=== PATIENT | male | born 1970 | race Caucasian/White ===

== ENCOUNTER 2018-03-12 23:29 | Emergency (ER) | payer SELFPAY ==
[2018-03-12] MEDS ORDERED: Ibuprofen 200 MG TAB ONE (23:57)
== END 2018-03-12 23:57 | disposition home or self-care (01) ==
LOC: BURERS 23:29
DX: L02.11 Cutaneous abscess of neck (principal); E11.9 Type 2 diabetes mellitus without complications
CPT/HCPCS: 10060

== ENCOUNTER 2018-07-09 18:30 | Emergency (ER) | payer BC, SELFPAY ==
[2018-07-09] MEDS ORDERED: Meclizine HCl 25 MG TAB ONE (19:04)
== END 2018-07-09 19:24 | disposition home or self-care (01) ==
LOC: BURERS 18:30
DX: H81.13 Benign paroxysmal vertigo, bilateral (principal); E11.9 Type 2 diabetes mellitus without complications
CPT/HCPCS: 36416; 96372

== ENCOUNTER 2019-03-05 15:38 | Emergency (ER) | payer BC | END 2019-03-05 17:19 | disposition home or self-care (01) | LOC: BURERS 15:38 | DX: L02.11 Cutaneous abscess of neck (principal); E11.9 Type 2 diabetes mellitus without complications; Z79.84 Long term (current) use of oral hypoglycemic drugs | CPT/HCPCS: 10060 ==

== ENCOUNTER 2020-05-24 13:31 | Emergency (ER) | payer BC ==
[2020-05-24] MEDS ORDERED: Promethazine HCl 25 MG/ML VIAL ONE (14:18)
== END 2020-05-24 14:43 | disposition home or self-care (01) ==
LOC: BURERS 13:31
DX: H81.11 Benign paroxysmal vertigo, right ear (principal); Z79.899 Other long term (current) drug therapy; Z79.84 Long term (current) use of oral hypoglycemic drugs; E11.9 Type 2 diabetes mellitus without complications
CPT/HCPCS: 96372; 99283; J2550

== ENCOUNTER 2024-03-22 10:50 | Emergency (ER) | payer BC ==
[2024-03-22] MEDS ORDERED: Meclizine HCl 25 MG TAB ONE (11:26)
[2024-03-22] MEDS ORDERED: HYDROcodone/Acetaminophen 10/325 mg Tablet ONE (11:36)
== END 2024-03-22 13:06 | disposition home or self-care (01) ==
LOC: BURERS 10:50
DX: M54.50 Low back pain, unspecified (principal); R42 Dizziness and giddiness; I10 Essential (primary) hypertension; E11.9 Type 2 diabetes mellitus without complications
CPT/HCPCS: 99283